=== PATIENT | male | born 1970 | race Caucasian/White ===

== ENCOUNTER → 2024-10-29 14:03 | Outpatient (BNVA) | payer OTHER, SELFPAY | PROVIDERS: Family Provider Family Medicine; PCP Family Medicine; Visit Provider Family Medicine | DX: M19.041 Primary osteoarthritis, right hand (principal) | CPT/HCPCS: 73130 ==

== ENCOUNTER → 2024-11-18 10:19 | Outpatient (BNVA) | payer OTHER, SELFPAY | PROVIDERS: Family Provider Family Medicine; PCP Family Medicine; Visit Provider Student in an Organized Health Care Education/Training Program | DX: S69.81XA Other specified injuries of right wrist, hand and finger(s), initial encounter (principal); S63.636A Sprain of interphalangeal joint of right little finger, initial encounter; W23.0XXA Caught, crushed, jammed, or pinched between moving objects, initial encounter; Y93.61 Activity, american tackle football | CPT/HCPCS: 73130 ==

== ENCOUNTER 2024-11-28 15:41 | Outpatient (CLI) | payer OTHER, SELFPAY ==
--- NOTE | 2024-11-28 16:00 | MRR_ITS ---
PROCEDURE INFORMATION: Exam: MR Right Upper Extremity Other Than Joint Without Contrast; Hand Exam date and time: 11/28/2024 4:02 PM Age: 54 years old Clinical indication: Injury or trauma; Injury date: 09/2024; Injury details: Patient states at the end of September he was playing football and jammed his pinky. Patient states when it first happened his right pinky finger was burning or felt like constant wasp sting. Patient states he only has pain now when he hits it on something. He reports stiffness and limited range of motion. Patient reports difficulty making a full fist. Patient also states that he jammed the same finger playing basketball in high school; Additional info: Right small finger injury/pip radial collateral injury TECHNIQUE: Imaging protocol: MR of the right upper extremity without contrast. Exam focused on the hand. COMPARISON: CR XR hand RT min 3V* [id number] 11/18/2024 10:26 AM FINDINGS: Limitations: Motion artifact. Bones/joints: Osseous alignment is notable for similar lateral subluxation of the middle phalanx of the 5th finger relative to the proximal phalanx by 3 mm. No dislocation. No acute fracture. Collateral ligaments of digits: There is evidence of abnormal thinning of the medial and lateral collateral ligaments of the 5th finger proximal interphalangeal joint is noted. Elevation is limited artifact. Flexor compartment tendons: Unremarkable. No evidence of tear. Extensor compartment tendons: Slight irregularity of the extensor complex of the 5th finger is identified in the region of the distal aspect of the proximal phalanx through the proximal aspect of the middle phalanx. Mild abnormal fluid within the 5th extensor tendon sheath is noted. Soft tissues: Unremarkable. MR/MR hand RT wo con* [id number] IMPRESSION: 1. Abnormal thinning of the medial and lateral collateral ligaments of the proximal interphalangeal joint of the 5th finger is suggestive of partial tearing, without definitive evidence of a full-thickness tear. This is associated with similar lateral subluxation of the middle phalanx relative to the proximal phalanx. 2. Extensor tenosynovitis and probable partial tear of the extensor complex of the 5th finger.
== END 2024-11-28 15:42 | disposition home or self-care (01) ==
LOC: RAD 15:43
PROVIDERS: Family Provider Family Medicine; PCP Family Medicine; Visit Provider Student in an Organized Health Care Education/Training Program
DX: M65.941 Unspecified synovitis and tenosynovitis, right hand (principal); S63.236A Subluxation of proximal interphalangeal joint of right little finger, initial encounter; S63.639A Sprain of interphalangeal joint of unspecified finger, initial encounter; X58.XXXA Exposure to other specified factors, initial encounter
CPT/HCPCS: 73218

== ENCOUNTER → 2024-12-23 16:02 | Outpatient (BNVA) | payer OTHER, SELFPAY | PROVIDERS: Family Provider Family Medicine; PCP Family Medicine; Visit Provider Student in an Organized Health Care Education/Training Program | DX: M79.643 Pain in unspecified hand (principal); S69.91XA Unspecified injury of right wrist, hand and finger(s), initial encounter; S63.206A Unspecified subluxation of right little finger, initial encounter; M19.041 Primary osteoarthritis, right hand; S63.636A Sprain of interphalangeal joint of right little finger, initial encounter; Y93.61 Activity, american tackle football | CPT/HCPCS: 73140 ==

== ENCOUNTER 2025-01-14 08:59 | Outpatient (RCR) | payer OTHER, SELFPAY | END 2025-02-10 23:59 | disposition home or self-care (01) | LOC: SOT 08:59 | PROVIDERS: Visit Provider Student in an Organized Health Care Education/Training Program | DX: S63.206A Unspecified subluxation of right little finger, initial encounter (principal); X58.XXXA Exposure to other specified factors, initial encounter | CPT/HCPCS: 97022; 97110; 97530 ==